=== PATIENT | male | born 1995 ===

== ENCOUNTER 2018-01-27 14:19 | Emergency (ER) | payer MEDICAID ==
[2018-01-27 14:28] VITALS: BMI 27.3
--- NOTE | 2018-01-27 14:48 | ED PDOC ---
Arrival/HPI - General Chief Complaint: Chest Pain Time Seen by Provider: 01/27/18 14:20 Historian: Patient, Parent (mother) - History of Present Illness Narrative History of Present Illness (Text): 01/27/18 14:48 This 22 yo male who denies pmh presents to this ED c/o dizziness, palpitation, sob, left sided CP x [employer]. 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 He said he did not feel well, so he sat down. Then, he said he felt palpitation, and sob, with left side CP. Patient stated he has never had this before. Patient denies recent travel , recent surgery, recent ABX, illegal drug use, trauma, VALENTIN, diplopia, dysarthria , leg swelling, hormonal therapy treatment, calf pain, rectal bleeding, hematuria, hemotysis, or abnormal gait. PERC negative for PE Time/Duration: Prior to Arrival Context: Work Past Medical History - Provider Review Nursing Documentation Reviewed: Yes - Infectious Disease Hx of Infectious Diseases: None - Psychiatric Hx Substance Use: No - Anesthesia Hx Anesthesia: No Family/Social History - Physician Review Nursing Documentation Reviewed: Yes Family/Social History: Other (noncontributory) Smoking Status: Light Smoker < 10 Cigarettes Daily Hx Alcohol Use: Yes Frequency of alcohol use: Socially Hx Substance Use: No Allergies/Home Meds Allergies/Adverse Reactions: Allergies No Known Allergies Allergy (Verified 01/27/18 14:28) Review of Systems - Review of Systems Constitutional: Normal. absent: Fatigue, Weight Change, Fevers, Night Sweats Eyes: Normal ENT: Normal Respiratory: SOB. absent: Cough, Sputum, Wheezing Cardiovascular: Chest Pain, Palpitations. absent: Edema, Calf Pain, KAUR, Orthopnea, Syncope Gastrointestinal: Normal Genitourinary Male: Normal Musculoskeletal: Normal Skin: Normal Neurological: Dizziness. absent: Headache, Focal Weakness, Gait Changes, Speech Changes, Facial Droop, Disequilibrium, Seizure Endocrine: Normal Hemo/Lymphatic: Normal Psychiatric: Normal. absent: Anxiety, Depression, Suicidal Ideation Physical Exam Vital Signs Temp Pulse Resp BP Pulse Ox 01/27/18 18:29 97.8 F 87 16 125/69 98 01/27/18 18:00 75 18 125/69 98 01/27/18 16:17 79 18 127/71 98 01/27/18 14:45 97.8 F 86 17 129/77 98 Temperature: Afebrile Blood Pressure: Normal Pulse: Regular Respiratory Rate: Normal Appearance: Positive for: Well-Appearing, Non-Toxic, Comfortable Pain Distress: None Mental Status: Positive for: Alert and Oriented X 3 - Systems Exam Head: Present: Atraumatic, Normocephalic Pupils: Present: PERRL Extroacular Muscles: Present: EOMI Conjunctiva: Present: Normal Mouth: Present: Moist Mucous Membranes Pharnyx: Present: Normal. No: ERYTHEMA, EXUDATE, TONSILS ENLARGED Neck: Present: Normal Range of Motion. No: Meningeal Signs, MIDLINE TENDERNESS , Paraspinal Tenderness Respiratory/Chest: Present: Clear to Auscultation, Good Air Exchange. No: Respiratory Distress, Accessory Muscle Use, Wheezes, Retracting, Rhonchi Cardiovascular: Present: Regular Rate and Rhythm, Normal S1, S2. No: Murmurs Abdomen: No: Tenderness, Distention, Peritoneal Signs, Rebound, Guarding Back: Present: Normal Inspection. No: CVA Tenderness Upper Extremity: Present: Normal Inspection, Normal ROM, NORMAL PULSES, Neurovascularly Intact. No: Cyanosis, Edema Lower Extremity: Present: Normal Inspection, NORMAL PULSES, Normal ROM. No: Edema Neurological: Present: GCS=15, CN II-XII Intact, Speech Normal Skin: Present: Warm, Dry, Normal Color. No: Rashes Psychiatric: Present: Alert, Oriented x 3, Normal Insight, Normal Concentration Medical Decision Making ED Course and Treatment: Patient was recommended to f/u pmd for further evaluation. Patient feels well. Patient wishes to be discharged home. - Lab Interpretations Lab Results: 01/27/18 15:00 01/27/18 15:00 Lab Results 01/27/18 18:15: Urine Color Yellow, Urine Appearance Clear, Urine pH 6.0, Ur Specific [place] >= 1.030, Urine Protein 30 H, Urine Glucose (UA) Negative, Urine Ketones Trace H, Urine Blood Negative, Urine Nitrate Negative, Urine Bilirubin Negative, Urine Urobilinogen 0.2, Ur Leukocyte Esterase Negative, Urine RBC Negative, Urine WBC 1 - 3, Ur Epithelial Cells 3 - 4, Urine Bacteria Mod 01/27/18 15:00: Sodium 144, Potassium 3.9, Chloride 106, Carbon Dioxide 24, Anion Gap 19, BUN 17, Creatinine 1.0, Est GFR ( Amer) > 60, Est GFR (Non- Af Amer) > 60, Random Glucose 105, Calcium 9.8, Magnesium 2.1, Total Bilirubin 0.6, AST 39, ALT 52, Alkaline Phosphatase 80, Total Protein 8.1, Albumin 5.1 H, Globulin 3.1, Albumin/Globulin Ratio 1.7 01/27/18 15:00: WBC 8.3, RBC 5.15, Hgb 16.0, Hct 45.0, MCV 87.4, MCH 31.1, MCHC 35.6, RDW 12.4, Plt Count 239, MPV 9.9, Gran % 50.5, Lymph % (Auto) 41.0 H, [place] % (Auto) 6.5 H, Eos % (Auto) 1.8, Baso % (Auto) 0.2, Gran # 4.16, Lymph # ( Auto) 3.4, [place] # (Auto) 0.5, Eos # (Auto) 0.2, Baso # (Auto) 0.02 - RAD Interpretation Narrative RAD Interpretations (Text): 01/27/18 18:05 PROCEDURE: CT HEAD WITHOUT CONTRAST. HISTORY: Dizziness FINDINGS: HEMORRHAGE: No acute parenchymal, subarachnoid or extra-axial hemorrhage. BRAIN: No evidence of large acute infarct. No obvious parenchymal nor extra-axial mass or collection is identified on this noncontrast study. There appears to be mild central volume loss with slight disproportionate enlargement of the ventricles as compared sulci. VENTRICLES: No obstructive hydrocephalus. CALVARIUM: Unremarkable. There are no acute calvarial fractures. PARANASAL SINUSES: Unremarkable as visualized. No significant inflammatory changes. MASTOID AIR CELLS: Unremarkable as visualized. No inflammatory changes. OTHER FINDINGS: None. IMPRESSION: No acute intracranial hemorrhage or large acute infarct. There appears to be mild central volume loss with slight disproportionate enlargement of the ventricles compared sulci Chest x-rays: NAD 01/27/18 18:05 Radiology Orders: 01/27/18 14:48 CHEST PORTABLE [RAD] Stat 01/27/18 14:49 HEAD W/O CONTRAST [CT] Stat - EKG Interpretation Interpreted by ED Physician: Yes (NSR @ [address] changes) Type: 12 lead EKG Comparison: No previous EKG avail. - Medication Orders Current Medication Orders: Discontinued Medications Meclizine HCl (Antivert) 50 mg PO STAT STA Stop: 01/27/18 16:52 Last Admin: 01/27/18 17:20 Dose: 50 mg Disposition/Present on Arrival - Present on Arrival Any Indicators Present on Arrival: No History of DVT/PE: No History of Uncontrolled Diabetes: No Urinary Catheter: No History of Decub. Ulcer: No History Surgical Site Infection Following: None - Disposition Have Diagnosis and Disposition been Completed?: Yes Diagnosis: Palpitations, Vertigo, Non-cardiac chest pain Disposition: HOME/ ROUTINE Disposition Time: 18:09 Patient Plan: Discharge Condition: IMPROVED Discharge Instructions (ExitCare): Vertigo (a Type of Dizziness) (DC), Palpitations (DC), Chest Pain (ED), Costochondritis (DC) Print Language: BELARUSIAN Additional Instructions: Llame a neurologo para seguimiento medico. Tamirmaen, llame a gill doctor o clinica para revaluacion. [place] medication baltazar valentin side instruido. Regrese a la emergencia si problema empeora. Prescriptions: Meclizine [Meclizine*] 25 mg PO Q6 PRN #30 tab PRN Reason: Dizziness Referrals: Byron Martinez MD [Staff Provider] - Follow up with primary [facility] [Outside] - Follow up with primary [facility] [Outside] - Follow up with primary Forms: [employer] ([place]), WORK NOTE
[2018-01-27 14:52] VITALS: TEMP 97.8; O2SAT 98
[2018-01-27 15:13] LABS: BASO # 0.02 K/mm3 (0.0-2.0); BASO % 0.2 % (0.0-3.0); EOS # 0.2 (0.0-0.7); EOS % 1.8 % (1.5-5.0); GRAN # 4.16 (1.4-6.5); GRAN % 50.5 % (50.0-68.0); LYMPH # 3.4 (1.2-3.4); MEAN CELL VOLUME 87.4 fl (80.0-105.0); MEAN CORPUSCULAR HEMOGLOBIN 31.1 pg (25.0-35.0); MEAN CORPUSCULAR HGB CONC 35.6 g/dl (31.0-37.0); MEAN PLATELET VOLUME 9.9 fl (7.0-11.0); MONO # 0.5 (0.1-0.6); MONO % 6.5 % (1.0-6.0); RBC 5.15 10^6/uL (3.5-6.1); RED CELL DISTRIBUTION WIDTH 12.4 % (11.5-14.5); WHITE BLOOD COUNT 8.3 10^3/ul (4.5-11.0)
[2018-01-27 15:24] LABS: ALB/GLOB RATIO 1.7 (1.1-1.8); ALBUMIN 5.1 g/dL (3.0-4.8); ALT/SGPT 52 U/L (7-56); AST/SGOT 39 U/L (17-59); BLOOD UREA NITROGEN 17 mg/dL (7-21); CALCIUM 9.8 mg/dL (8.4-10.5); GFR AFRICAN-AMERICAN > 60; GFR NON-AFRICAN AMERICAN > 60
--- NOTE | 2018-01-27 17:57 | CT ---
PROCEDURE: CT HEAD WITHOUT CONTRAST. HISTORY: Dizziness COMPARISON: None available. TECHNIQUE: Transaxial helical/ computed tomography images were obtained through the head/brain without intravenous contrast. Radiation dose: Total exam DLP = 83.75 mGy-cm. This CT exam was performed using one or more of the following dose reduction techniques: Automated exposure control, adjustment of the mA and/or kV according to patient size, and/or use of iterative reconstruction technique. FINDINGS: HEMORRHAGE: No acute parenchymal, subarachnoid or extra-axial hemorrhage. BRAIN: No evidence of large acute infarct. No obvious parenchymal nor extra-axial mass or collection is identified on this noncontrast study. There appears to be mild central volume loss with slight disproportionate enlargement of the ventricles as compared sulci. VENTRICLES: No obstructive hydrocephalus. CALVARIUM: Unremarkable. There are no acute calvarial fractures. PARANASAL SINUSES: Unremarkable as visualized. No significant inflammatory changes. MASTOID AIR CELLS: Unremarkable as visualized. No inflammatory changes. OTHER FINDINGS: None. IMPRESSION: No acute intracranial hemorrhage or large acute infarct. There appears to be mild central volume loss with slight disproportionate enlargement of the ventricles compared sulci
--- NOTE | 2018-01-27 18:11 | RAD ---
HISTORY: palpitation COMPARISON: No prior. FINDINGS: LUNGS: No active pulmonary disease. PLEURA: No significant pleural effusion identified, no pneumothorax apparent. CARDIOVASCULAR: Normal. OSSEOUS STRUCTURES: No significant abnormalities. VISUALIZED UPPER ABDOMEN: Normal. OTHER FINDINGS: None. IMPRESSION: No active disease. Baseline portable frontal chest x-ray.
--- NOTE | 2018-01-27 18:22 | CARD ---
APPROVED REPORT EKG Measurement Heart [id number] <Conclusion> Normal sinus rhythm Normal ECG
[2018-01-27 18:28] VITALS: BP 125/69
[2018-01-27 18:30] VITALS: PULSE 87; RESP 16
[2018-01-27 18:34] LABS: URINE BILIRUBIN NEGATIVE (NEGATIVE); URINE BLOOD NEGATIVE (NEGATIVE); URINE GLUCOSE (UA) NEGATIVE (NEGATIVE); URINE LEUKOCYTE ESTERASE NEGATIVE Leu/uL (NEGATIVE); URINE PROTEIN 30 mg/dL (<30 mg/dL); URINE UROBILINOGEN 0.2 E.U./dL (<1 E.U./dL)
[2018-01-27 18:35] LABS: URINE APPEARANCE CLEAR (CLEAR); URINE COLOR YELLOW (YELLOW)
[2018-01-27 18:46] LABS: URINE RBC NEGATIVE /hpf (0-2)
[2018-01-27 18:47] LABS: URINE BACTERIA MOD (NEG)
== END 2018-01-27 18:29 | disposition home or self-care (01) ==
LOC: ED 14:19
DX: R00.2 Palpitations (principal); R42 Dizziness and giddiness; R07.89 Other chest pain